=== PATIENT | female | born 1955 ===

== ENCOUNTER → 2017-09-07 | Outpatient (CLI) | payer OTHER ==
--- NOTE | 2017-09-07 10:43 | ECHOF ---
Referral Reason:R00.2 palpitations, R07.89 other chest pain MEASUREMENTS -------- HEIGHT: 165.1 cm WEIGHT: 96.2 kg BP: 122/55 IVSd: 1.4 cm (0.6 - 1.1) LVIDd: 3.8 cm (3.9 - 5.3) LVPWd: 1.3 cm (0.6 - 1.1) IVSs: 1.9 cm LVIDs: 1.4 cm LVPWs: 1.9 cm LAESV Index (A-L): 16.22 ml/m Ao Diam: 2.8 cm (2.0 - 3.7) AV Cusp: 1.8 cm (1.5 - 2.6) LA Diam: 2.9 cm (2.7 - 3.8) MV EXCURSION: 13.818 mm (> 18.000) MV EF SLOPE: 92 mm/s (70 - 150) EPSS: 0.5 cm MV E [place]: 0.88 m/s MV DecT: 207 ms MV A [place]: 0.81 m/s MV E/A Ratio: 1.08 RAP: 5.00 mmHg RVSP: 14.00 mmHg FINDINGS -------- Sinus rhythm. This was a technically good study. The left ventricular size is normal. There is mild concentric left ventricular hypertrophy. Overa ll left ventricular systolic function is normal with, an EF between 55 - 60 %. The right ventricle is normal in size and function. The left atrium is normal in size. The right atrium is normal in size. The aortic valve is trileaflet, and appears structurally normal. No aortic stenosis or regurgitation. There is trace mitral regurgitation. Trace tricuspid regurgitation present. The right ventricular systolic pressure, as measured by Dopp ler, is 14.00mmHg. Pulmonic valve appears structurally normal. The aortic root size is normal. Normal inferior vena cava with normal inspiratory collapse consistent with estimated right atrial pre ssure of 5 mmHg. The pericardium is normal. CONCLUSIONS -------- 1. Sinus rhythm. 2. This was a technically good study. 3. The left ventricular size is normal. 4. There is mild concentric left ventricular hypertrophy. 5. Overall left ventricular systolic function is normal with, an EF between 55 - 60 %. 6. The right ventricle is normal in size and function. 7. The left atrium is normal in size. 8. The right atrium is normal in size. 9. The aortic valve is trileaflet, and appears structurally normal. No aortic stenosis or regurgitati on. 10. There is trace mitral regurgitation. 11. Trace tricuspid regurgitation present. 12. The right ventricular systolic pressure, as measured by Doppler, is 14.00mmHg. 13. Pulmonic valve appears structurally normal. 14. The aortic root size is normal. 15. Normal inferior vena cava with normal inspiratory collapse consistent with estimated right atrial pressure of 5 mmHg. 16. The pericardium is normal. [employer]: Garima Smith RDCS
--- NOTE | 2017-09-07 10:57 | EST ---
EXERCISE STRESS AGE: 61 SEX: F HT: 5'5" WT: 212 PROTOCOL: Emanuel Cardiolite Stress Test STAGE: II DURATION OF EXERCISE: 6:00 HEART RATE REST: 67 BLOOD PRESSURE REST: 110/54 MAXIMUM HEART RATE ACHIEVED: 152 MAXIMUM BLOOD PRESSURE: 153/68 85% MPHR: 137 100% MPHR: 161 METS: 7.3 INDICATIONS: Palpitations. CLINICAL INFORMATION: Baseline EKG revealed a sinus mechanism without significant ST-T changes. There were borderline voltage criteria for LVH. Patient walked for 6 minutes on a standard Emanuel protocol. Achieved a maximal heart rate of 152 beats per minute, developed fatigue and shortness of breath but did not have any anginal symptoms. There was about a [address]-segment depression seen without associated symptoms of angina and this could be related to hypertension. Patient did not have any angina or arrhythmia. By EKG criteria, this is a positive stress test. Possibility of being false-positive should be considered given the fact patient has probably underlying hypertension. The nuclear scan results, which are more pertinent will be reported by the radiologist. JEEVANL / IJN: [id number] /
--- NOTE | 2017-09-07 13:20 | NM ---
EXAMINATION TYPE: NM stress cardiolite complete DATE OF EXAM: 09/07/2017 COMPARISON: NONE HISTORY: History of tobacco use, family history of heart attack and dad and brother presents with pal pitations. TECHNIQUE: After the intravenous administration of 10.24 mCi Tc 99m Sestamibi - Rest images obtained 45 minutes post injection. The patient exercised using a HERMINIA protocol and 1 minute prior to peak exercise was injected with 25.7 mCi Tc 99m Sestamibi - Stress images obtained 40 minutes post inject ion. FINDINGS: Targeted heart rate was achieved during performance of the study. Review of stress and rest SPECT av ges demonstrates no distinct perfusion abnormality. Some diminished uptake is seen in the anterosepta l wall mid to apical segments extending towards the apex on both stress and rest images could reflect artifact or old infarct. Gated analysis shows normal wall motion with an estimated left ventricular ejection fraction of 61 %. IMPRESSION: No scintigraphic evidence for reversible ischemia
== END | disposition home or self-care (01) ==
LOC: RADNMMAIN 07:51
PROVIDERS: ATTEND Family Medicine
DX: I08.1 Rheumatic disorders of both mitral and tricuspid valves (principal); R00.2 Palpitations; R07.89 Other chest pain
CPT/HCPCS: 93017; 93306; 78452; A9500

== ENCOUNTER → 2017-09-19 | Outpatient (CLI) | payer OTHER ==
--- NOTE | 2017-09-20 12:19 | MM ---
Reason for exam: screening (asymptomatic). Last mammogram was performed 2 years and 2 months ago. History: Patient is postmenopausal. Family history of breast cancer in aunt at age 60. Physical Findings: A clinical breast exam by your physician is recommended on an annual basis and results should be correlated with mammographic findings. MG Screening Mammo w CAD Bilateral CC and MLO view(s) were taken. Prior study comparison: July 25, 2015, mammogram, performed at [facility]. The breast tissue is heterogeneously dense. This may lower the sensitivity of mammography. There is a 7mm asymmetry 6.9cm from the nipple in the superior right breast at middle depth. ASSESSMENT: Incomplete: need additional imaging evaluation, BI-RAD 0 RECOMMENDATION: Special view mammogram of the right breast. If lesion persists on supplemental views, image directed ultrasound is recommended. [facility] will attempt to contact patient to return for supplemental views and ultrasound if indicated.
== END | disposition home or self-care (01) ==
LOC: RADMAMWWP 14:52
PROVIDERS: ATTEND Surgery
DX: Z12.31 Encounter for screening mammogram for malignant neoplasm of breast (principal)
CPT/HCPCS: 77067

== ENCOUNTER → 2017-09-23 | Outpatient (CLI) | payer OTHER ==
--- NOTE | 2017-09-26 07:21 | MM ---
Reason for exam: additional evaluation requested from abnormal screening. Last mammogram was performed less than 1 month ago. History: Patient is postmenopausal. Family history of breast cancer in aunt at age 60. Physical Findings: Nurse did not find any significant physical abnormalities on exam. MG Work Up Mamm w CAD RT Spot compression CC, spot compression MLO, ML, CCRL, and CCRM view(s) were taken of the right breast. Prior study comparison: September 19, 2017, bilateral MG screening mammo w CAD. July 25, 2015, mammogram, performed at [facility]. The breast tissue is heterogeneously dense. This may lower the sensitivity of mammography. There is no discrete abnormality on compression on rolled views. No significant new findings when compared with previous films. These results were verbally communicated with the patient and result sheet given to the patient on 09/23/17. ASSESSMENT: Benign, BI-RAD 2 RECOMMENDATION: Return to routine screening mammogram schedule for both breasts.
== END | disposition home or self-care (01) ==
LOC: RADMAMWWP 13:29
PROVIDERS: ATTEND Family Medicine
DX: R92.8 Other abnormal and inconclusive findings on diagnostic imaging of breast (principal)
CPT/HCPCS: 77065

== ENCOUNTER 2020-02-25 01:18 | Observation (INO) | payer BC, OTHER ==
[2020-02-25] MEDS ORDERED: HYDROmorphone 0.5 MG/0.5 ML SYRINGE IVP STA ×2 (02:33→04:51)
[2020-02-25] MEDS ORDERED: SODIUM CHLORIDE 0.9% 1,000 ML IV STA (02:33)
[2020-02-25] MEDS ORDERED: ONDANSETRON 4 MG/2 ML VIAL IVP STA (02:33)
[2020-02-25 02:54] LABS: Basophils % (A) 0 %; Eosinophils # (A) 0.1 k/uL (0-0.7); Eosinophils % (A) 1 %; HCT 39.4 % (34.0-46.0); HGB 12.7 gm/dL (11.4-16.0); Lymphocytes # (A) 2.3 k/uL (1.0-4.8); Lymphocytes % (A) 20 %; MCH 25.1 pg (25.0-35.0); MCHC 32.2 g/dL (31.0-37.0); Mean Platelet Volume 8.7; Monocytes # (A) 0.4 k/uL (0-1.0); Monocytes % (A) 4 %; Neutrophils # (A) 8.8 k/uL (1.3-7.7); Neutrophils % (A) 75 %; Platelet Count 232 k/uL (150-450); RBC 5.06 m/uL (3.80-5.40); RDW 14.8 % (11.5-15.5); WBC 11.7 k/uL (3.8-10.6)
[2020-02-25 03:17] LABS: ALT 26 U/L (4-34); African American GFR (CKD) >90 (>60 ml/min/1.73 sqM); Amylase 69 U/L (30-110); Anion Gap 7 mmol/L; Blood Urea Nitrogen 25 mg/dL (7-17); Carbon Dioxide 24 mmol/L (22-30); Chloride 103 mmol/L (98-107); Glucose 125 mg/dL (74-99); Non-African American GFR(CKD) >90 (>60 ml/min/1.73 sqM); Sodium 134 mmol/L (137-145); Total Bilirubin 0.8 mg/dL (0.2-1.3)
--- NOTE | 2020-02-25 03:17 | ED ---
Abdominal Pain HPI - General Chief Complaint: Abdominal Pain Stated Complaint: Abdominal Pain/Upper Back Pain Time Seen by Provider: 02/25/20 02:12 Source: patient, family Mode of arrival: wheelchair Limitations: no limitations - History of Present Illness Initial Comments: 64-year-old female patient presents to the emergency department today for evaluation of upper abdominal pain with radiation through to the back. Patient is also reporting vomiting. States her vomitus has been yellow. Denies hematemesis. States symptoms have been going on for the last 2-3 hours. She states symptoms started suddenly. She denies any constipation or diarrhea. Denies history of similar symptoms. Denies fever or chills. Does admit to having 2 alcoholic beverages today. States that she drinks 2-3 times per month socially. Denies any street drug use. She has had appendectomy in the past at [facility]. She did try taking Tums and Pepto-Bismol without relief. Denies any chest pain or shortness of breath. Patient denies any recent rash, cough, numbness, tingling, dizziness, weakness, hematuria, dysuria, urinary urgency, urinary frequency, headache, visual changes, or any other complaints. - Related Data Home Medications Medication Instructions Recorded Confirmed Aspirin EC [Ecotrin Low Dose] 81 mg PO DAILY 02/25/20 02/25/20 Calcium Carbonate [Calcium] 600 mg PO DAILY 02/25/20 02/25/20 Cetirizine HCl [Zyrtec] 10 mg PO DAILY 02/25/20 02/25/20 Magnesium Oxide [Mag-Ox] 400 mg PO DAILY 02/25/20 02/25/20 Multivitamins, Thera [Multivitamin 1 tab PO DAILY 02/25/20 02/25/20 (formulary)] Turmeric Root Extract [Turmeric] 500 mg PO DAILY 02/25/20 02/25/20 Vitamin B Complex 1 tab PO DAILY 02/25/20 02/25/20 Vitamin C/Biotin [Hair, Skin and 1 tab PO DAILY 02/25/20 02/25/20 Nails] Previous Rx's Medication Instructions Recorded traMADol HCL 1 - 2 mg PO Q6HR PRN #15 tablet 02/25/20 Allergies Allergy/AdvReac Type Severity Reaction Status Date / Time No Known Allergies Allergy Verified 02/25/20 11:29 Review of Systems ROS Statement: Those systems with pertinent positive or pertinent negative responses have been documented in the HPI. ROS Other: All systems not noted in ROS Statement are negative. Past Medical History Past Medical History: No Reported History History of Any Multi-Drug Resistant Organisms: None Reported Past Surgical History: Appendectomy Additional Past Surgical History / Comment(s): kidney removal. Past Psychological History: No Psychological Hx Reported Smoking Status: Current every day smoker Past Alcohol Use History: Occasional Past Drug Use History: None Reported - Past Family History Mother Family Medical History: Cancer Additional Family Medical History / Comment(s): lymphoma Father Family Medical History: CVA/TIA, Myocardial Infarction ([place]) General Exam Limitations: no limitations General appearance: alert, in no apparent distress, other (This is a well- developed, well-nourished adult female patient in mild distress related to pain and vomiting. Vital signs upon arrival temperature 97.6F, pulse 69, respira tions 18, blood pressure 141/91, pulse ox 100% on room air.) Eye exam: Present: normal appearance, PERRL, EOMI. Absent: scleral icterus, conjunctival injection, periorbital swelling Respiratory exam: Present: normal lung sounds bilaterally. Absent: respiratory distress, wheezes, rales, rhonchi, stridor Cardiovascular Exam: Present: regular rate, normal rhythm, normal heart sounds. Absent: systolic murmur, diastolic murmur, rubs, gallop, clicks GI/Abdominal exam: Present: soft, tenderness (Right upper quadrant), normal bowel sounds. Absent: distended, guarding, rebound, rigid Neurological exam: Present: alert, oriented X3, CN II-XII intact Psychiatric exam: Present: normal affect, normal mood Skin exam: Present: warm, dry, intact, normal color. Absent: rash Course Vital Signs 02/25/20 02/25/20 02/25/20 01:21 03:30 04:30 Temperature 97.6 F 97.5 F L 97.1 F L Pulse Rate 69 65 62 Respiratory 18 18 18 Rate Blood Pressure 141/91 140/76 123/56 O2 Sat by Pulse 100 98 99 Oximetry 02/25/20 05:30 Temperature 98.0 F Pulse Rate 70 Respiratory 18 Rate Blood Pressure 150/85 O2 Sat by Pulse 98 Oximetry Medical Decision Making - Medical Decision Making 64-year-old female patient presented to the emergency department today for evaluation of right upper quadrant abdominal pain and vomiting. Physical examination did reveal right upper quadrant tenderness with positive Mtz sign. Labs reviewed and did reveal elevated white blood cell count at 11.7, neutrophils 8.8. BUN was mildly elevated at 25. Potassium was 5.5 but the specimen was hemolyzed this is felt inaccurate. Urinalysis shows no sign of infection. Ultrasound of the right upper quadrant was obtained and did reveal 2 large gallstones one in the gallbladder neck which was immobile, one mobile down in the fundus. There is gallbladder wall thickening and enlargement consistent with acute cholecystitis. Patient was started on Zosyn. She'll be admitted to the hospital for further surgical evaluation. Dr. Pathak is accepting. - Lab Data Result diagrams: 02/25/20 02:41 02/25/20 02:41 Lab Results 02/25/20 02/25/20 02/25/20 Range/Units 02:41 02:41 02:41 WBC 11.7 H (3.8-10.6) k/uL RBC 5.06 (3.80-5.40) m/uL Hgb 12.7 (11.4-16.0) gm/dL Hct 39.4 (34.0-46.0) % MCV 78.0 L (80.0-100.0) fL MCH 25.1 (25.0-35.0) pg MCHC 32.2 (31.0-37.0) g/dL RDW 14.8 (11.5-15.5) % Plt Count 232 (150-450) k/uL Neutrophils % 75 % Lymphocytes % 20 % Monocytes % 4 % Eosinophils % 1 % Basophils % 0 % Neutrophils # 8.8 H (1.3-7.7) k/uL Lymphocytes # 2.3 (1.0-4.8) k/uL Monocytes # 0.4 (0-1.0) k/uL Eosinophils # 0.1 (0-0.7) k/uL Basophils # 0.0 (0-0.2) k/uL Sodium 134 L (137-145) mmol/L Potassium 5.5 H (3.5-5.1) mmol/L Chloride 103 (98-107) mmol/L Carbon Dioxide 24 (22-30) mmol/L Anion Gap 7 mmol/L BUN 25 H (7-17) mg/dL Creatinine 0.64 (0.52-1.04) mg/dL Est GFR (CKD-EPI)AfAm >90 (>60 ml/min/1.73 sqM) Est GFR (CKD-EPI)NonAf >90 (>60 ml/min/1.73 sqM) Glucose 125 H (74-99) mg/dL Plasma Lactic Acid Adriano (0.7-2.0) mmol/L Calcium 10.0 (8.4-10.2) mg/dL Total Bilirubin 0.8 (0.2-1.3) mg/dL AST 70 H (14-36) U/L ALT 26 (4-34) U/L Alkaline Phosphatase 59 (38-126) U/L Troponin I (0.000-0.034) ng/mL Total Protein 8.2 (6.3-8.2) g/dL Albumin 5.0 (3.5-5.0) g/dL Amylase 69 (30-110) U/L Lipase 165 (23-300) U/L Urine Color Yellow Urine Appearance Clear (Clear) Urine pH 5.5 (5.0-8.0) Ur Specific [place] 1.027 (1.001-1.035) Urine Protein Trace H (Negative) Urine Glucose (UA) Negative (Negative) Urine Ketones Negative (Negative) Urine Blood Negative (Negative) Urine Nitrite Negative (Negative) Urine Bilirubin Negative (Negative) Urine Urobilinogen <2.0 (<2.0) mg/dL Ur Leukocyte Esterase Moderate H (Negative) Urine RBC 3 (0-5) /hpf Urine WBC 4 (0-5) /hpf Ur Squamous Epith Cells 1 (0-4) /hpf Urine Bacteria Rare H (None) /hpf Hyaline Casts 1 (0-2) /lpf Urine Mucus Occasional H (None) /hpf 02/25/20 02/25/20 Range/Units 02:41 02:41 WBC (3.8-10.6) k/uL RBC (3.80-5.40) m/uL Hgb (11.4-16.0) gm/dL Hct (34.0-46.0) % MCV (80.0-100.0) fL MCH (25.0-35.0) pg MCHC (31.0-37.0) g/dL RDW (11.5-15.5) % Plt Count (150-450) k/uL Neutrophils % % Lymphocytes % % Monocytes % % Eosinophils % % Basophils % % Neutrophils # (1.3-7.7) k/uL Lymphocytes # (1.0-4.8) k/uL Monocytes # (0-1.0) k/uL Eosinophils # (0-0.7) k/uL Basophils # (0-0.2) k/uL Sodium (137-145) mmol/L Potassium (3.5-5.1) mmol/L Chloride (98-107) mmol/L Carbon Dioxide (22-30) mmol/L Anion Gap mmol/L BUN (7-17) mg/dL Creatinine (0.52-1.04) mg/dL Est GFR (CKD-EPI)AfAm (>60 ml/min/1.73 sqM) Est GFR (CKD-EPI)NonAf (>60 ml/min/1.73 sqM) Glucose (74-99) mg/dL Plasma Lactic Acid Adriano 1.1 (0.7-2.0) mmol/L Calcium (8.4-10.2) mg/dL Total Bilirubin (0.2-1.3) mg/dL AST (14-36) U/L ALT (4-34) U/L Alkaline Phosphatase (38-126) U/L Troponin I <0.012 (0.000-0.034) ng/mL Total Protein (6.3-8.2) g/dL Albumin (3.5-5.0) g/dL Amylase (30-110) U/L Lipase (23-300) U/L Urine Color Urine Appearance (Clear) Urine pH (5.0-8.0) Ur Specific [place] (1.001-1.035) Urine Protein (Negative) Urine Glucose (UA) (Negative) Urine Ketones (Negative) Urine Blood (Negative) Urine Nitrite (Negative) Urine Bilirubin (Negative) Urine Urobilinogen (<2.0) mg/dL Ur Leukocyte Esterase (Negative) Urine RBC (0-5) /hpf Urine WBC (0-5) /hpf Ur Squamous Epith Cells (0-4) /hpf Urine Bacteria (None) /hpf Hyaline Casts (0-2) /lpf Urine Mucus (None) /hpf - EKG Data -: EKG Interpreted by Me EKG Comments: EKG obtained at 35 shows normal sinus rhythm with a ventricular rate of 61, AZ interval 174, QRS duration 94, QTC 440, QTC 442. No evidence of ST elevation or depression. - Radiology Data Radiology results: report reviewed, image reviewed Ultrasound of the right upper quadrant was obtained. Report was reviewed in its entirety. Impression by Dr. Carlton shows cholelithiasis. No dilated ducts. Large gallbladder with mild gallbladder wall thickening could relate to acute cholecystitis. Disposition Clinical Impression: Acute cholecystitis, Cholelithiasis Disposition: ADMITTED IP TO THIS [facility] Condition: Serious Decision to Admit Reason: Admit from EC Decision Date: 02/25/20 Decision Time: 04:56
--- NOTE | 2020-02-25 04:30 | US ---
EXAMINATION TYPE: US abdomen limited DATE OF EXAM: 02/25/2020 COMPARISON: NONE CLINICAL HISTORY: RUQ. RUQ pain that radiates to back, right kidney surgically absent EXAM MEASUREMENTS: Liver Length: 17.5 cm Gallbladder Wall: 0.4 cm CBD: 0.5 cm Pancreas: wnl, tail obscured by overlying bowel gas Liver: Visualized portions appeared wnl Gallbladder: Two gallstones, one non-mobile in neck= 1.4 cm in size, and one mobile stone in fundus= 2.0 cm in size/ wall thickened Evidence for sonographic Mtz's sign: Yes CBD: wnl Right Kidney: Surgically absent IMPRESSION: Cholelithiasis. No dilated ducts. Large gallbladder with mild gallbladder wall thickening could relate to acute cholecystitis.
[2020-02-25 04:32] LABS: Potassium 5.5 mmol/L (3.5-5.1); Total Protein 8.2 g/dL (6.3-8.2)
[2020-02-25 04:33] LABS: AST 70 U/L (14-36); Alkaline Phosphatase 59 U/L (38-126)
[2020-02-25 04:42] LABS: Appearance,Urine Clear (Clear); Bacteria,Urine Rare /hpf; Bilirubin,Urine Negative (Negative); Blood,Urine Negative (Negative); Color,Urine Yellow; Glucose,Urine (UA) Negative (Negative); Hyaline Casts,Urine 1 /lpf (0-2); Ketones,Urine Negative (Negative); Leukocyte Esterase,Urine Moderate (Negative); Mucus,Urine Occasional /hpf; Nitrite,Urine Negative (Negative); PH, Urine 5.5 (5.0-8.0); Protein,Urine Trace (Negative); RBC,Urine 3 /hpf (0-5); Specific Gravity,Urine 1.027 (1.001-1.035); Squamous Epithelial Cell,Urine 1 /hpf (0-4); Urobilinogen,Urine <2.0 mg/dL (<2.0); WBC,Urine 4 /hpf (0-5)
[2020-02-25] MEDS ORDERED: HYDROmorphone 1 MG/ML 1 ML SYRINGE IVP PRN (04:51)
[2020-02-25] MEDS ORDERED: ONDANSETRON 4 MG/2 ML VIAL IVP PRN (04:52)
[2020-02-25] MEDS ORDERED: NALOXONE 0.4 MG/ML 1 ML VIAL IV PRN (04:52)
[2020-02-25] MEDS ORDERED: PIPERACILLIN-TAZOBACTAM 3.375 GM in SODIUM CHLORIDE 0.9% 100 ML IVPB ONE (05:00)
[2020-02-25] MEDS: SODIUM CHLORIDE 0.9% 1,000 ML IV SCH ×2 (05:33→19:18)
--- NOTE | 2020-02-25 11:08 | P.GSHP ---
History of Present Illness H&P Date: 02/25/20 Chief Complaint: Cholelithiasis with acute cholecystitis The patient is a 64-year-old female who presented with severe right upper quadrant pain yesterday. She's had some vague pain for some time which would radiate through to the back. Yesterday it was severe and nonrelenting. She had nausea and vomiting. Denies jaundice, tea-colored urine, acholic stools. There is a strong family history of gallbladder disease in her mother, sister and daughter. - Review of Systems All systems: negative Past Medical History Past Medical History: No Reported History History of Any Multi-Drug Resistant Organisms: None Reported Past Surgical History: Appendectomy Additional Past Surgical History / Comment(s): kidney removal. tubes tide Past Anesthesia/Blood Transfusion Reactions: No Reported Reaction Past Psychological History: No Psychological Hx Reported Smoking Status: Current some day smoker Past Alcohol Use History: Occasional Past Drug Use History: None Reported - Past Family History Mother Family Medical History: Cancer Additional Family Medical History / Comment(s): lymphoma Father Family Medical History: CVA/TIA, Myocardial Infarction ([place]) Medications and Allergies Allergies Allergy/AdvReac Type Severity Reaction Status Date / Time No Known Allergies Allergy Verified 02/25/20 01:26 Surgical - Exam Osteopathic Statement: *. No significant issues noted on an osteopathic struc tural exam other than those noted in the History and Physical/Consult. Vital Signs Temp Pulse Resp BP Pulse Ox 97.6 F 69 18 141/91 100 02/25/20 01:21 02/25/20 01:21 02/25/20 01:21 02/25/20 01:21 02/25/20 01:21 - General well developed, well nourished - Eyes normal ocular movement - Neck trachea midline - Respiratory normal expansion, clear to auscultation - Cardiovascular Rhythm: regular - Abdomen Abdomen: soft, tender (Right upper quadrant), surgical scars - Integumentary Non-icteric Results - Labs 02/25/20 02:41 02/25/20 02:41 Abnormal Lab Results - Last 24 Hours (Table) 02/25/20 02/25/20 02/25/20 Range/Units 02:41 02:41 02:41 WBC 11.7 H (3.8-10.6) k/uL MCV 78.0 L (80.0-100.0) fL Neutrophils # 8.8 H (1.3-7.7) k/uL Sodium 134 L (137-145) mmol/L Potassium 5.5 H (3.5-5.1) mmol/L BUN 25 H (7-17) mg/dL Glucose 125 H (74-99) mg/dL AST 70 H (14-36) U/L Urine Protein Trace H (Negative) Ur Leukocyte Esterase Moderate H (Negative) Urine Bacteria Rare H (None) /hpf Urine Mucus Occasional H (None) /hpf Diabetes panel 02/25/20 Range/Units 02:41 Sodium 134 L (137-145) mmol/L Potassium 5.5 H (3.5-5.1) mmol/L Chloride 103 (98-107) mmol/L Carbon Dioxide 24 (22-30) mmol/L BUN 25 H (7-17) mg/dL Creatinine 0.64 (0.52-1.04) mg/dL Glucose 125 H (74-99) mg/dL Calcium 10.0 (8.4-10.2) mg/dL AST 70 H (14-36) U/L ALT 26 (4-34) U/L Alkaline Phosphatase 59 (38-126) U/L Total Protein 8.2 (6.3-8.2) g/dL Albumin 5.0 (3.5-5.0) g/dL Calcium panel 02/25/20 Range/Units 02:41 Calcium 10.0 (8.4-10.2) mg/dL Albumin 5.0 (3.5-5.0) g/dL Pituitary panel 02/25/20 Range/Units 02:41 Sodium 134 L (137-145) mmol/L Potassium 5.5 H (3.5-5.1) mmol/L Chloride 103 (98-107) mmol/L Carbon Dioxide 24 (22-30) mmol/L BUN 25 H (7-17) mg/dL Creatinine 0.64 (0.52-1.04) mg/dL Glucose 125 H (74-99) mg/dL Calcium 10.0 (8.4-10.2) mg/dL Adrenal panel 02/25/20 Range/Units 02:41 Sodium 134 L (137-145) mmol/L Potassium 5.5 H (3.5-5.1) mmol/L Chloride 103 (98-107) mmol/L Carbon Dioxide 24 (22-30) mmol/L BUN 25 H (7-17) mg/dL Creatinine 0.64 (0.52-1.04) mg/dL Glucose 125 H (74-99) mg/dL Calcium 10.0 (8.4-10.2) mg/dL Total Bilirubin 0.8 (0.2-1.3) mg/dL AST 70 H (14-36) U/L ALT 26 (4-34) U/L Alkaline Phosphatase 59 (38-126) U/L Total Protein 8.2 (6.3-8.2) g/dL Albumin 5.0 (3.5-5.0) g/dL - Imaging US - abdomen: report reviewed Assessment and Plan (1) Acute cholecystitis Current Visit: Yes Status: Acute Code(s): K81.0 - ACUTE CHOLECYSTITIS SNOMED Code(s): 06638672 (2) Cholelithiasis Current Visit: Yes Status: Acute Code(s): K80.20 - CALCULUS OF GALLBLADDER W/O CHOLECYSTITIS W/O OBSTRUCTION SNOMED Code(s): 412960930 Plan: Recommended laparoscopic cholecystectomy possible open. The procedure, risks, complications were discussed. Usual postoperative course was discussed. Questions were encouraged and answered. Therefore able to do this laparoscopically and she is doing well, possible discharge later this afternoon. DVT and ulcer prophylaxis. Prophylactic antibiotics.
[2020-02-25] MEDS ORDERED: NEOSTIGMINE 1 MG/ML 10 ML VIAL ONE (11:39)
[2020-02-25] MEDS ORDERED: SUCCINYLCHOLINE CHLORIDE 100 MG/5 ML SYR IV ONE (11:39)
[2020-02-25] MEDS ORDERED: LIDOCAINE 1% INJ 10MG/ML (20 ML MDV) ONE (11:39)
[2020-02-25] MEDS ORDERED: GLYCOPYRROLATE 0.2 MG/ML 2 ML VIAL ONE (11:39)
[2020-02-25] MEDS ORDERED: PROPOFOL 10 MG/ML 20 ML VIAL IV ONE (11:39)
[2020-02-25] MEDS ORDERED: KETOROLAC 15 MG/ML 1 ML VIAL ONE (11:39)
[2020-02-25] MEDS ORDERED: ROCURONIUM BROMIDE 10 MG/ML 5 ML VIAL IV ONE (11:39)
[2020-02-25] MEDS ORDERED: MIDAZOLAM 2 MG/2 ML VIAL ONE (11:39)
[2020-02-25] MEDS ORDERED: DEXAMETHASONE SOD PHOSPHATE 10 MG/ML 1 ML VIAL ONE (11:39)
[2020-02-25] MEDS ORDERED: ONDANSETRON 4 MG/2 ML VIAL ONE (11:39)
[2020-02-25] MEDS ORDERED: fentaNYL (PF) 50 MCG/ML 2 ML AMP ONE (11:39)
[2020-02-25] MEDS ORDERED: SODIUM CHLORIDE 0.9% 1,000 ML IV ONE (11:44)
[2020-02-25] MEDS ORDERED: LIDOCAINE 1%-EPI 1:100,000 20 ML VIAL SQ ONE ×2 (12:02→12:16)
[2020-02-25] MEDS ORDERED: BUPIVACAINE (PF) 0.25% 30 ML VIAL SQ ONE ×3 (12:16→12:33)
[2020-02-25] MEDS ORDERED: LACTATED RINGERS 1,000 ML IV ONE (12:34)
--- NOTE | 2020-02-25 12:41 | P.OP ---
Date of Procedure: 02/25/20 Preoperative Diagnosis: Cholelithiasis, acute cholecystitis Postoperative Diagnosis: Cholelithiasis, acute cholecystitis Procedure(s) Performed: Laparoscopic cholecystectomy Anesthesia: CARMEL Surgeon: Trina Pathak Estimated Blood Loss (ml): 20 Pathology: other (Gallbladder) Condition: stable Disposition: PACU Indications for Procedure: The patient presented with abdominal pain and findings of acute cholecystitis with a with a stone impacted in the Kong's pouch Description of Procedure: The patient's taken to the operative suite where she is prepped and draped in the usual sterile manner under general endotracheal anesthetic. A small incision is made under the umbilicus. The subcutaneous tissues are divided. The fascia was grasped and incised. The peritoneum was grasped and incised. Finger sweep was carried out. A balloon trocar was inserted and pneumoperitoneum was established with CO2 gas. Sites are chosen for accessory trochars needs are placed through small skin incisions. The gallbladder is distended and edematous. Some filmy adhesions of the omentum were bluntly taken down. The gallbladder was decompressed of 20 mL's of bile to allow for to be grasped. Kong's pouch is then identified. There was a stone impacted. It's able to be milked up out of Kong's pouch. The cystic duct and cystic artery are then dissected free. The cystic duct is milked medial to lateral and no evidence of any cystic duct stones were identified. The duct and artery are then triply clipped and cut. The gallbladder is dissected off the liver bed. Small bleeding points were controlled with electrocautery. The gallbladder is removed through the umbilical port site. The liver bed is reexamined and noted be hemostatic. The excess irrigant was suctioned out. The pneumoperitoneum was released. The trochars were removed. The fascia at the umbilicus was closed with 0 Vicryl. The skin incisions were closed with 4-0 Vicryl in a subcuticular manner. Steri-Strips and dressings were applied. She tolerated the procedure without difficulty and was taken recovery room in satisfactory condition. According to or personnel, all counts were correct.
[2020-02-25 12:55] VITALS: RESP 16
[2020-02-25] MEDS ORDERED: PIPERACILLIN-TAZOBACTAM 3.375 GM in SODIUM CHLORIDE 0.9% 100 ML IVPB SCH (14:00)
[2020-02-25] MEDS ORDERED: traMADol 50 MG TAB PO PRN (15:07)
[2020-02-25 15:17] VITALS: TEMP 98.3
[2020-02-25 15:48] VITALS: BP 130/80; PULSE 61
== END 2020-02-25 18:31 | disposition home or self-care (01) ==
LOC: EC 01:18 → 5NMEDONC 04:47 → 6NMEDSUR 05:26
PROVIDERS: ADMIT Surgery; ATTEND Surgery
DX: K80.00 Calculus of gallbladder with acute cholecystitis without obstruction (principal); F17.210 Nicotine dependence, cigarettes, uncomplicated; Z90.49 Acquired absence of other specified parts of digestive tract; Z79.82 Long term (current) use of aspirin; Z79.899 Other long term (current) drug therapy; Z90.5 Acquired absence of kidney; Z80.7 Family history of other malignant neoplasms of lymphoid, hematopoietic and related tissues; Z82.49 Family history of ischemic heart disease and other diseases of the circulatory system; Z82.3 Family history of stroke
CPT/HCPCS: 96376; 96361; 96374; 96375; 99285; 36415; 93005; 88304; 80053; 82150; 83605; 83690; 84484; 85025; 81001; 76705; 47562; G0378; J2543; J2250; J1100; J2710; J2405; J2001; J3010; J1885; J0330; J2704; J1170